=== PATIENT | female | born 1990 | race Caucasian/White ===

== ENCOUNTER 2018-11-28 13:14 | Day surgery (SDC) | payer SELFPAY ==
[2018-11-28 15:07] VITALS: BMI 33.2
[2018-11-28] MEDS ORDERED: hydrALAZINE 20 MG/ML VIAL SLOW IVP PRN (16:23)
--- NOTE | 2018-11-28 17:08 | PDOC.FPROB ---
FMR OB H&P: HPI - History of Present Illness Chief Complaint: Vaginal discharge Indentification: 28 year old at 29.0 wks History of Present Illness: 28 year old at 29.0 wks with RENA 02/13/2019 presents with vaginal discharge. She denies LoF. She is having some abdominal cramping/pressure, but no contractions. She denies vaginal bleeding. Patient endorses movement. Patient states she felt something wet in her vaginal area. She described it as "gooey". After that initial incident, she has not felt anything since that time. Patient recently moved here from [place]. She has not established with PCP and has not been seen in 3 weeks. She states she plans to establish this week. 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 States last smoked cigarettes several months ago, prior to . Denies alcohol or drug use. FMR OB H&P: Medications - Current Home Medications: Medication Instructions Recorded Confirmed Type No Known 11/28/18 11/28/18 History Allergies/Adverse Reactions: Allergies Allergy/AdvReac Type Severity Reaction Status Date / Time Latex, Natural Rubber Allergy Verified 11/28/18 15:00 FMR OB H&P: ROS - Review of Systems General: denies: fever/chills, weight/appetite/sleep changes Eyes: denies: vision changes, double vision ENT: denies: nasal congestion, sore throat Cardiovascular: reports: other (Known heart murmur since childhood). denies: chest pain, palpitation, edema Gastrointestinal: reports: abdominal pain (Abdominal cramping/discomfort). denies: nausea, vomiting, diarrhea Genitourinary (Female): reports: vaginal discharge. denies: dysuria, vaginal pain, vaginal bleeding, contractions Musculoskeletal: denies: pain, stiffness Neurologic: denies: numbness, syncope Integumentary: denies: itching, lesions Hematologic/Lymphatic: denies: prolonged or excessive bleeding Psychological: reports: depression, anxiety FMR OB H&P: Vital Signs - Maternal Vital signs: BP 109/55 Pulse 82 Afebrile - Heart Tones Baseline: 135 Variability: moderate Acceleration: present Deceleration: absent Pillow contractions every: None; Reactive strip FMR OB H&P: Physical Exam - Physical Exam General: NAD, awake, alert and oriented HEENT: MMM, grossly normal vision, grossly normal hearing Heart: RRR, pulses present, no edema Deviation from normal: 2/6 systolic murmur General: CTAB, no respiratory distress Abdomen: soft, gravid, non-tender Musculoskeletal: pulses present, FROM in all four extremities Neurological: no tremor, no focal deficit Skin: no rash, capillary refill <2 seconds Lymphatic: no unusual bruising or bleeding, no purpura - Pelvic Exam Vulva: normal hair distribution, appropriate dana stage Cervix: no masses Deviation from normal: moderate amount of harris/white discharge on speculum exam SVE: Appeared closed on speculum exam FMR OB H&P: A/P - Problem List (1) Status: Acute Qualifiers: Weeks of gestation: 29 weeks Qualified Code(s): Z3A.29 - 29 weeks gestation of (2) Systolic murmur Status: Chronic Code(s): R01.1 - CARDIAC MURMUR, UNSPECIFIED (3) Vaginal discharge Status: Acute Code(s): N89.8 - OTHER SPECIFIED NONINFLAMMATORY DISORDERS OF VAGINA (4) Chlamydia Status: Acute Code(s): A74.9 - CHLAMYDIAL INFECTION, UNSPECIFIED (5) Asthma Status: Chronic Code(s): J45.909 - UNSPECIFIED ASTHMA, UNCOMPLICATED Qualifiers: Asthma severity: unspecified severity Asthma persistence: unspecified Asthma complication type: unspecified Qualified Code(s): J45.909 - Unspecified asthma, uncomplicated (6) Anxiety Status: Chronic Code(s): F41.9 - ANXIETY DISORDER, UNSPECIFIED (7) Depression Status: Chronic Code(s): F32.9 - MAJOR DEPRESSIVE DISORDER, SINGLE EPISODE, UNSPECIFIED Disposition: 28 year old at 29.0 wks with RENA 02/13/2019 presents with vaginal discharge sIUP, - 29 wks - OPC from [place]; no records for review - Patient states Rh negative, has not yet received rhogam shot - Information provided for TAMP and PNC for patient to establish early next week - Attempted to get 3T labs and type and screen on patient today. Patient was unable to stay due to her children. Discussed importance of close follow up in order to get labs, Tdap, and rhogam. She understood and states she will follow up Fri/ next week. Vaginal discharge - Recent diagnosis of chlamydia x2 weeks ago, s/p treatment - LEYDA today - GC/CT pending - VP3 negative - Speculum exam with moderate amount of harris/white thin discharge Chlamydia in - x2 weeks ago, s/p treatment - LEYDA today - GC/CT pending Migraine headaches - Was supposed to establish with Neurologist in [place] but never had the chance to do so - Not symptomatic currently Heart murmur - Systolic 2/6 on exam - Per patient, present since childhood - Endorses occasional shortness of breath on exertion, would get baseline labs at OB visit to include CMP, BNP - EKG outpatient for further evaluation Anxiety - Was prescribed zofran for anxiety, but she opted not to take it due to theoretical risks associated with fetus, to include pulmonary hypertension - Patient states well controlled currently Depression - See plan for anxiety - Patient denies any suicidal or homicidal thoughts/ideations Asthma - Recent exacerbation during - Albuterol PRN - No hemabate Tobacco use - States quit prior to Dispo: Plan to d/c home with return precautions. Provided info for TAMP and PNC. Patient would like to establish with myself going forward. I will personally call TAMP and PNC on Friday to ensure she gets follow up. Attempted to get labs today, but patient was unable to stay to get these done. Patient reports being Rh negative and has not received rhogam shot. Without type and screen, could not give injection. Advised to have her records from [place] sent over to TAMP/PNC and we can repeat labs Fri/ if we do not have those records available. Patient also due for Tdap. Patient understood importance of follow up, and she has agreed to call to schedule appt with one of two places on Friday. Discussion: Date/Time: 11/28/18 2229 This H&P was discussed with Dr. Red who agrees with the above documentation and plan. Signature: Julienne Gutierrez, DO PGY-3 Addendum - Attending - Attending Attestation Date/Time: 11/28/18 6521 I personally evaluated the patient and discussed the management with Dr. Gutierrez I agree with the History, Examination, Assessment and Plan documented above with any addition or exceptions noted below. vitals signs reviewed 109/55 82 afebrile
[2018-11-29] MEDS ORDERED: FLU VACC QS2019-20(6MOS UP)/PF 60 MCG/0.5 ML SYRINGE IM ONE (09:00)
[2018-11-29 21:36] LABS: Chlamydia by PCR DETECTED (NotDetected); GC by PCR Not Detected (NotDetected)
== END 2018-11-28 17:23 | disposition home or self-care (01) ==
LOC: L&D/OP 13:14
PROVIDERS: ATTEND Obstetrics & Gynecology
DX: O99.89 Other specified diseases and conditions complicating pregnancy, childbirth and the puerperium (principal); N89.8 Other specified noninflammatory disorders of vagina; R10.9 Unspecified abdominal pain; O98.813 Other maternal infectious and parasitic diseases complicating pregnancy, third trimester; O99.343 Other mental disorders complicating pregnancy, third trimester; F41.9 Anxiety disorder, unspecified; F32.9 Major depressive disorder, single episode, unspecified; O99.413 Diseases of the circulatory system complicating pregnancy, third trimester; R01.1 Cardiac murmur, unspecified; O99.513 Diseases of the respiratory system complicating pregnancy, third trimester; J45.909 Unspecified asthma, uncomplicated; Z3A.29 29 weeks gestation of pregnancy; Z87.891 Personal history of nicotine dependence; Z91.040 Latex allergy status; Z91.048 Other nonmedicinal substance allergy status
CPT/HCPCS: 87480; 87491; 87510; 87591; 87660

== ENCOUNTER 2019-01-28 20:25 | Day surgery (SDC) | payer OTHER ==
[2019-01-28 21:00] VITALS: BMI 38.4
--- NOTE | 2019-01-28 21:26 | PDOC.FPROB ---
FMR OB H&P: HPI - History of Present Illness Chief Complaint: swelling Indentification: 28 y/o @ 37.5 by LMP/17.6 wk sono History of Present Illness: Patient reports for the past 3 days she has been having swelling in her hands, feet, and face. She reports it is worse when she is on her feet and then improved when she has her feet elevated. She reports a few headaches resolved with tylenol. She denies ctx, LOF, vaginal bleeding, vision changes, RUQ pain. Reports some dyspea with exertion but no baseline SOB. Endorses movement. Primary Care Physician: Dr. Gutierrez - DAVID FMR OB H&P: Current - Care : 7 Para: [id number] Gestational age: 37w5d Due date: 02/13/19 Dating Criteria: LMP/17.6 wk sono Course/Complications: Chlamydia twice during s/p treatment, needs LEYDA in about 1-2 weeks Pinworms s/p albendazole - OB Labs Blood type: O RH: negative Antibody Screen: negative HIV: negative RPR: negative HepBsAg: negative Rubella: non-immune Quad screen: negative Urine drug screen: negative Gonorrhea: negative Chlamydia: positive (s/p tx with neg LEYDA and then positive again s/p treatment) 1 hour gtt: 137 A1c: 4.5 GBS: negative H&H: 10.5/29.4 FMR OB H&P: History - Past Medical History PMH: Pinworms Obesity - OB History OB History: 5 prior term 's, no complications 1 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 Remote hx of abnormal pap - Surgical History Sx History: Tonsillectomy/adenoidectomy - Social History Social History: Denies any tobacco, EtOH, or drug use during this Transferred care from [place] when she moved recently - Family History Family History: Paternal grandmother - DM, HTN FMR OB H&P: Medications - Current Home Medications: Medication Instructions Recorded Confirmed Type No Known 11/28/18 01/28/19 History Allergies/Adverse Reactions: Allergies Allergy/AdvReac Type Severity Reaction Status Date / Time Latex, Natural Rubber Allergy Mild Rash Verified 01/28/19 20:59 FMR OB H&P: ROS - Review of Systems General: denies: fever/chills, weight/appetite/sleep changes Eyes: denies: vision changes, double vision, scot[place] ENT: denies: rhinorrhea, sore throat Cardiovascular: reports: edema. denies: chest pain Respiratory: denies: cough, shortness of breath Gastrointestinal: denies: abdominal pain, nausea, vomiting Genitourinary (Female): denies: dysuria, vaginal discharge, vaginal bleeding, contractions Musculoskeletal: denies: pain, stiffness Neurologic: denies: numbness, weakness Integumentary: denies: itching, rash FMR OB H&P: Vital Signs - Maternal Vital signs: BP 108/57, HR 99, Temp 98.0, O2 sat 99% on RA - Heart Tones Baseline: 130 Variability: moderate Acceleration: present Deceleration: absent Category: category 1 [place] contractions every: rare FMR OB H&P: Physical Exam - Physical Exam General: NAD, awake, alert and oriented HEENT: normocephalic and atraumatic, EOMI, MMM, conjunctiva clear, grossly normal vision, grossly normal hearing Neck: supple, no LAD Heart: RRR, normal S1/S2, no murmurs/rubs/gallops, pulses present, other ( minimal pedal edema) General: CTAB, no respiratory distress, good air movement, no rales/rhonchi, no wheezing Abdomen: soft, gravid, non-tender Musculoskeletal: pulses present, FROM in all four extremities Neurological: cranial nerves II through XII intact, no focal deficit Skin: good tugor, capillary refill <2 seconds Lymphatic: no unusual bruising or bleeding, no purpura Psychiatric: intact recent and remote memory, good judgement and insight FMR OB H&P: A/P - Problem List (1) Swelling of lower extremity during in third trimester Status: Acute Code(s): O12.03 - GESTATIONAL EDEMA, THIRD TRIMESTER Comment: Pt with normal BP's while here and minimal extremity swelling Urine dip with 1+ protein -Gave pt reassurance -Gave pre-e precautions and labor precautions -Continue routine OB f/u with Dr. Gutierrez (2) Chlamydia Status: Acute Code(s): A74.9 - CHLAMYDIAL INFECTION, UNSPECIFIED Comment: Recent chlamydia that was treated -LEYDA at next office visit Disposition: d/c home Discussion: Date/Time: 01/28/192123 This H&P was discussed with Dr. Kim who agrees with the above documentation and plan. Signature: Nicol Galloway MD, PGY-3 Addendum - Attending - Attending Attestation Date/Time: 01/28/192114 I personally evaluated the patient and discussed the management with Dr. Galloway I agree with the History, Examination, Assessment and Plan documented above with any addition or exceptions noted below. Trace edema to BLE. Nonpitting. No evidence of anasarca. No concern for preE. BP WNL. Asymptomatic. Trace protein on POC UA. +FM. Reactive tracing. No decels. No contractions. No bleeding. Follow up with PCP next week. Ok to d/c to home. Rahul
[2019-01-28 22:10] LABS: Bilirubin Negative (Negative); Blood, Urine Negative (Negative); Clarity Turbid (Clear); Glucose, Urine (Dipstick) Normal (Negative); Leukocyte 500 Leu/uL (Negative); Nitrite Negative (Negative); Protein, Urine (Dipstick) 30 mg/dL (Neg-Trace); Urobilinogen Normal mg/dL (Less than 2)
== END 2019-01-28 22:31 | disposition home or self-care (01) ==
LOC: L&D/OP 20:25
PROVIDERS: ATTEND Student in an Organized Health Care Education/Training Program
DX: O12.03 Gestational edema, third trimester (principal); O98.813 Other maternal infectious and parasitic diseases complicating pregnancy, third trimester; A74.9 Chlamydial infection, unspecified; Z3A.37 37 weeks gestation of pregnancy; Z91.040 Latex allergy status
CPT/HCPCS: 81003; 99282

== ENCOUNTER 2019-02-08 18:00 | Inpatient (IN) | payer OTHER ==
[~2019-02-08 18:00] MED LIST: Bupivacaine PF 0.5% 30 ML VIAL ONE
[2019-02-09] MEDS ORDERED: hydrALAZINE 20 MG/ML VIAL SLOW IVP PRN (02:54)
[2019-02-09] MEDS ORDERED: Lidocaine 1% (PF) 30 ML VIAL SC PRN (02:55)
[2019-02-09] MEDS ORDERED: Promethazine HCl 25 MG/ML VIAL IM PRN ×2 (02:56→05:22)
[2019-02-09] MEDS ORDERED: Ondansetron PF 4 MG/2 ML Vial IVP PRN ×2 (02:56→05:22)
[2019-02-09] MEDS ORDERED: Misoprostol 100 MCG TAB VAG SCH (03:00)
[2019-02-09] MEDS: Lactated Ringer's 1,000 ML IV SCH ×2 (03:45→14:13)
--- NOTE | 2019-02-09 03:45 | PDOC.FPROB ---
FMR OB H&P: HPI - History of Present Illness Chief Complaint: eIOL Indentification: 28 year old at 39 wks by LMP/17.4 wk sono History of Present Illness: 28 year old at 39.3 wks by LMP/17.4 wk sono presents for eIOL. Patient endorses pelvic pain, intermittent contractions. Denies vaginal bleeding, vaginal discharge, LoF. Patient endorses good movement. Patient plans to give infant up for adoption. Adoptive family that was initially chosen backed out yesterday. Patient's adoption agency is in [place], but patient has privacy attorney here in [facility]. She plans to still go through with adoption and is in the process of choosing another family. Patient moved here from [place] during her third trimester. 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 Patient quit several months into . Denies alcohol or drug use during . FMR OB H&P: Medications - Current Home Medications: Medication Instructions Recorded Confirmed Type No Known 11/28/18 02/05/19 History Allergies/Adverse Reactions: Allergies Allergy/AdvReac Type Severity Reaction Status Date / Time Latex, Natural Rubber Allergy Mild Rash Verified 02/09/19 03:55 FMR OB H&P: ROS - Review of Systems General: reports: fatigue. denies: fever/chills ENT: reports: nasal congestion, rhinorrhea Cardiovascular: denies: chest pain, palpitation, edema Respiratory: reports: cough, congestion. denies: shortness of breath Gastrointestinal: denies: abdominal pain, nausea, vomiting Genitourinary (Female): reports: contractions, vaginal pressure. denies: dysuria, vaginal discharge, vaginal pain, vaginal bleeding Musculoskeletal: reports: pain. denies: tenderness Neurologic: denies: numbness, syncope, weakness Integumentary: denies: itching, rash, lesions Psychological: reports: depression, anxiety FMR OB H&P: Vital Signs - Maternal Vital signs: BP 117/58 Pulse 88 Afebrile - Heart Tones Baseline: 130 Variability: moderate Acceleration: present Deceleration: absent Category: category 1 [place] contractions every: q1-2 min w/ pit FMR OB H&P: Physical Exam - Physical Exam General: NAD, awake, alert and oriented HEENT: MMM, grossly normal vision, grossly normal hearing Deviation from normal: Clear rhinorrhea Heart: RRR, pulses present General: CTAB, no wheezing Abdomen: soft, gravid, non-tender Neurological: no tremor, no focal deficit Skin: no rash, capillary refill <2 seconds Lymphatic: no unusual bruising or bleeding, no purpura Psychiatric: intact recent and remote memory, good judgement and insight, normal mood and affect - Pelvic Exam SVE: 04/29/-3 ballotable Presentation: Cephalic FMR OB H&P: A/P - Problem List (1) Term Current Visit: Yes Status: Acute Code(s): Z34.90 - ENCNTR FOR SUPRVSN OF NORMAL , UNSP, UNSP TRIMESTER (2) Encounter for induction of labor Current Visit: Yes Status: Acute Code(s): Z34.90 - ENCNTR FOR SUPRVSN OF NORMAL , UNSP, UNSP TRIMESTER (3) Rh negative state in antepartum period Current Visit: Yes Status: Acute Code(s): O26.899 - OTH RELATED CONDITIONS, UNSPECIFIED TRIMESTER; Z67.91 - UNSPECIFIED BLOOD TYPE, RH NEGATIVE (4) Maternal obesity affecting , antepartum Current Visit: Yes Status: Acute Code(s): O99.210 - OBESITY COMPLICATING , UNSPECIFIED TRIMESTER (5) Rubella non-immune status, antepartum Current Visit: Yes Status: Acute Code(s): O99.89 - OTH DISEASES AND CONDITIONS COMPL PREG/CHLDBRTH; Z28.3 - UNDERIMMUNIZATION STATUS (6) Anxiety Current Visit: No Status: Chronic Code(s): F41.9 - ANXIETY DISORDER, UNSPECIFIED (7) Asthma Current Visit: No Status: Chronic Code(s): J45.909 - UNSPECIFIED ASTHMA, UNCOMPLICATED Qualifiers: Asthma severity: unspecified severity Asthma persistence: unspecified Asthma complication type: unspecified Qualified Code(s): J45.909 - Unspecified asthma, uncomplicated (8) Depression Current Visit: No Status: Chronic Code(s): F32.9 - MAJOR DEPRESSIVE DISORDER , SINGLE EPISODE, UNSPECIFIED Qualifiers: Trimester: third trimester Disposition: 28 year old at 39.3 wks by LMP/17.4 wk sono Encounter for term eIOL - Term at 39.3 wks - 3 on presentation - Category I strip - Will augment with pitocin - Growth scan w/ hadlock 76% at 35.6 wks - Desires epidural Rh neg - Rhogam given 12/22/2018 Late transfer of care - From [place] in - Plan to give infant up for adoption; adoption agency in [place] - Will consult CM Chlamydia in - s/p neg LEYDA Migraine headaches Rubella non-immune - MMR vaccine PP SAB x1 Grandmultip - High risk PPH - Will have meds available at bedside Maternal obesity - TSH and HgA1c WNL - 10 Ib weight gain in Asthma - Avoid hemabate PP Dispo: Admit to L&D. Augment labor with pitocin. Discussion: Date/Time: 02/09/19 5231 This H&P was discussed with Dr. Gutierrez who agrees with the above documentation and plan. Signature: Julienne Gutierrez DO PGY-3 Addendum - Attending - Attending Attestation Date/Time: 02/09/19 9413 I personally evaluated the patient and discussed the management with Dr. Gutierrez I agree with the History, Examination, Assessment and Plan documented above with any addition or exceptions noted below. 28 yo female at 39.3 wks admitted for eIOL. R/B/A discussed. Questions answered. Consents signed. Cephalic by sono. 8 lb fetus. Cat 1 tracing. Will start pitocin per protocol. Repeat exam as indicated. GBS negative. ABrayMD
[2019-02-09 03:54] VITALS: BMI 38.0
[2019-02-09] MEDS ORDERED: Butorphanol Tartrate 1 MG/ML VIAL SLOW IVP PRN (04:03)
[2019-02-09] MEDS ORDERED: Ibuprofen 800 MG TAB PO PRN (04:03)
[2019-02-09 04:53] LABS: Hemoglobin 10.6 g/dL (12.0-16.0); Mean Corpuscular HGB CONC 33.6 g/dL (32.0-36.0); Mean Corpuscular Hemoglobin 29.3 pg (27.0-31.0); Mean Corpuscular Volume 87.1 fL (78.0-98.0); Mean Platelet Volume 8.1 fL (7.4-10.4); Platelet Count 194 thou/uL (130-400); Red Blood Cell (RBC) Count 3.63 mill/uL (4.20-5.40); White Blood Cell (WBC) Count 14.6 thou/uL (4.8-10.8)
[2019-02-09] MEDS: NS w/ Oxytocin 10 units 500 ML IV SCH ×2 (05:10→17:54)
[2019-02-09] MEDS ORDERED: Fentanyl 4 mcg/Bup 0.1% Cadd 100 ML ONE ×3 (05:20→17:45)
[2019-02-09] MEDS ORDERED: ePHEDrine/0.9% NaCl/PF SYRINGE 50 mg/10 ml SLOW IVP PRN (05:22)
[2019-02-09] MEDS ORDERED: Lactated Ringer's 500 ML IV PRN (05:22)
[2019-02-09] MEDS ORDERED: Naloxone HCl 0.4 mg/ml Vial IVP PRN ×2 (05:22)
[2019-02-09] MEDS ORDERED: Acetaminophen 325 MG TAB PO PRN (05:22)
[2019-02-09] MEDS ORDERED: Communication Order-Pharmacy FS SCH (05:30)
[2019-02-09] MEDS ORDERED: Fentanyl 4 mcg/Bupivacaine 0.1% Cassette 100 ML EPIDURAL SCH (05:30)
[2019-02-09] MEDS ORDERED: Fentanyl 100 MCG/2 ML VIAL ONE (05:33)
[2019-02-09 05:35] LABS: HBSAg Index 0.18 S/CO (0-0.99); Hep B Surf Ag Non-Reactive S/CO (NonReactive); Syphilis Antibody Nonreactive (Nonreactive); Syphilis Antibody Index 0.03 S/CO (<1.00 Non-Reactive)
--- NOTE | 2019-02-09 06:10 | PDOC.LDPN ---
Labor & Delivery Progress Note - Subjective Subjective: comfortable - Objective Vital signs reviewed and normal: yes General: NAD, resting Uterine fundus: non tender SVE: by nurse at 5:45 Dilation: 3 Effacement: 50% Station: -3 FHT: category 1, variability present [place] contractions every: q1-2 min - Assessment (1) Term Code(s): Z34.90 - ENCNTR FOR SUPRVSN OF NORMAL , UNSP, UNSP TRIMESTER Current Visit: Yes Status: Acute (2) Encounter for induction of labor Code(s): Z34.90 - ENCNTR FOR SUPRVSN OF NORMAL , UNSP, UNSP TRIMESTER Current Visit: Yes Status: Acute (3) Rh negative state in antepartum period Code(s): O26.899 - OTH RELATED CONDITIONS, UNSPECIFIED TRIMESTER; Z67.91 - UNSPECIFIED BLOOD TYPE, RH NEGATIVE Current Visit: Yes Status: Acute (4) Maternal obesity affecting , antepartum Code(s): O99.210 - OBESITY COMPLICATING , UNSPECIFIED TRIMESTER Current Visit: Yes Status: Acute (5) Rubella non-immune status, antepartum Code(s): O99.89 - OTH DISEASES AND CONDITIONS COMPL PREG/CHLDBRTH; Z28.3 - UNDERIMMUNIZATION STATUS Current Visit: Yes Status: Acute (6) Anxiety Code(s): F41.9 - ANXIETY DISORDER, UNSPECIFIED Current Visit: No Status: Chronic (7) Asthma Code(s): J45.909 - UNSPECIFIED ASTHMA, UNCOMPLICATED Current Visit: No Status: Chronic Qualifiers: Asthma severity: unspecified severity Asthma persistence: unspecified Asthma complication type: unspecified Qualified Code(s): J45.909 - Unspecified asthma, uncomplicated (8) Depression Code(s): F32.9 - MAJOR DEPRESSIVE DISORDER, SINGLE EPISODE, UNSPECIFIED Current Visit: No Status: Chronic Qualifiers: Trimester: third trimester Plan: continue plan of care, labor augmentation, pitocin for augmentation -: Continue current plan of care. Pitocin for augmentation. Will reassess in 2 hours. Patient with epidural in place. Addendum - Attending - Attending Attestation Date/Time: 02/09/19 9949 I personally evaluated the patient and discussed the management with Dr. Gutierrez I agree with the History, Examination, Assessment and Plan documented above with any addition or exceptions noted below. Unchanged. Will continue with current plan. Repeat exam as indicated. Cat 1 tracing. Requesting epidural. Rahul
[2019-02-09] MEDS: diphenhydrAMINE 50 MG/ML VIAL IVP PRN ×3 (07:54→22:10)
--- NOTE | 2019-02-09 08:06 | PDOC.LDPN ---
Labor & Delivery Progress Note - Subjective Subjective: comfortable, no concerns - Objective Vital signs reviewed and normal: yes (BP 113/58, HR 76) General: NAD, resting Uterine fundus: non tender SVE: 50/-2 Dilation: 3 Effacement: 50% Station: -2 FHT: category 1, acceleration absent, variability present (minimal variability) [place] contractions every: 3 min Other exam findings: pitocin at 10 mU/min Plan: continue plan of care, pitocin for augmentation -: continue expectant mgmt epidural in place benadryl for itching prn Addendum - Attending - Attending Attestation Date/Time: 02/09/19 2834 I personally evaluated the patient and discussed the management with the team. I agree with the History, Examination, Assessment and Plan documented above with any addition or exceptions noted below.
--- NOTE | 2019-02-09 12:10 | PDOC.LDPN ---
Labor & Delivery Progress Note - Subjective Subjective: comfortable, no concerns - Objective Vital signs reviewed and normal: yes General: NAD, resting Uterine fundus: non tender SVE: /-2 Dilation: 4 Effacement: 90% Station: -2 FHT: category 1, variability present [place] contractions every: 3-4 min Plan: continue plan of care, pitocin for augmentation -: pit at 16 continue expectant mgmt Addendum - Attending - Attending Attestation Date/Time: 02/09/19 0184 I personally evaluated the patient and discussed the management with Dr. Diop. I agree with the History, Examination, Assessment and Plan documented above with any addition or exceptions noted below.
--- NOTE | 2019-02-09 15:04 | PDOC.BPN ---
<Nessa Diop - Last Filed: 02/09/19 15:03> - Brief Progress Note Labor & Delivery Progress Note - Subjective Subjective: comfortable, no concerns, epidural in place - Objective Vital signs reviewed and normal: yes General: NAD, resting Uterine fundus: non tender SVE: 5/80/-2 Dilation: 5 Effacement: 80% Station: -2 FHT: category 1, variability present [place] contractions every: 3-4 min Plan: continue plan of care, pitocin for augmentation -: pit at 20 continue expectant mgmt fetus still ballotable therefore, will wait to AROM. Risks and benefits of ROM explained to pt. <Stefan Read - Last Filed: 02/09/19 16:24> Addendum - Attending - Attending Attestation Date/Time: 02/09/19 5902 I personally evaluated the patient and discussed the management with Dr. Diop. I agree with the History, Examination, Assessment and Plan documented above with any addition or exceptions noted below.
--- NOTE | 2019-02-09 16:45 | PDOC.LDPN ---
Labor & Delivery Progress Note - Objective Vital signs reviewed and normal: yes General: NAD, resting Dilation: 6/70/-2, ballotable (head moves away and does not return quickly) FHT: category 1, variability present (no decels, + accels) Plan: continue plan of care (explained risks of rupture and that I do not feel safe at this time. Recheck in 2 hours. Reposition as well.)
--- NOTE | 2019-02-09 18:50 | PDOC.LDPN ---
Labor & Delivery Progress Note - Subjective Subjective: comfortable, other (Non-painful contractions, epidural in place) - Objective Vital signs reviewed and normal: yes General: NAD, resting Uterine fundus: non tender Effacement: 75% Station: -2 FHT: category 1 [place] contractions every: q3-4 mins Other exam findings: ballotable Procedures: Pitocin 16 - Assessment (1) Encounter for induction of labor Code(s): Z34.90 - ENCNTR FOR SUPRVSN OF NORMAL , UNSP, UNSP TRIMESTER Current Visit: Yes Status: Acute (2) Term Code(s): Z34.90 - ENCNTR FOR SUPRVSN OF NORMAL , UNSP, UNSP TRIMESTER Current Visit: Yes Status: Acute (3) Third trimester Code(s): Z34.93 - ENCNTR FOR SUPRVSN OF NORMAL PREG, UNSP, THIRD TRIMESTER Current Visit: No Status: Acute (4) Anxiety Code(s): F41.9 - ANXIETY DISORDER, UNSPECIFIED Current Visit: No Status: Chronic (5) Depression Code(s): F32.9 - MAJOR DEPRESSIVE DISORDER, SINGLE EPISODE, UNSPECIFIED Current Visit: No Status: Chronic Qualifiers: Trimester: third trimester Plan: continue plan of care -: Pt is comfortable. FHT's 120, moderate variability. 6/70/-2. No change from 1630 check. Ballotable. Pitocin running at 16. Continue current plan. Addendum - Attending - Attending Attestation Date/Time: 02/09/191949 I personally evaluated the patient and discussed the management with Dr. Souza I agree with the History, Examination, Assessment and Plan documented above with any addition or exceptions noted below. Patient unchanged largely all afternoon. Fetus not well engaged. During most resent SVE, contraction started. Membranes noted to thin and subsequently ruptured. Clear fluid. Ultrasound performed. No evidence of cord within range of os. Fetus now engaged. 7 cm. TrevonMD
--- NOTE | 2019-02-09 19:50 | PDOC.LDPN ---
Labor & Delivery Progress Note - Subjective Subjective: comfortable, vaginal pressure, loss of fluid - Objective Vital signs reviewed and normal: yes General: NAD, resting Uterine fundus: palpable contractions Dilation: 6 cm Effacement: 75% FHT: category 1 [place] contractions every: q3-4 mins Procedures: AROM AROM: clear fluid FSE placed: yes - Assessment (1) Encounter for induction of labor Code(s): Z34.90 - ENCNTR FOR SUPRVSN OF NORMAL , UNSP, UNSP TRIMESTER Current Visit: Yes Status: Acute (2) Term Code(s): Z34.90 - ENCNTR FOR SUPRVSN OF NORMAL , UNSP, UNSP TRIMESTER Current Visit: Yes Status: Acute (3) Third trimester Code(s): Z34.93 - ENCNTR FOR SUPRVSN OF NORMAL PREG, UNSP, THIRD TRIMESTER Current Visit: No Status: Acute (4) Anxiety Code(s): F41.9 - ANXIETY DISORDER, UNSPECIFIED Current Visit: No Status: Chronic (5) Depression Code(s): F32.9 - MAJOR DEPRESSIVE DISORDER, SINGLE EPISODE, UNSPECIFIED Current Visit: No Status: Chronic Qualifiers: Trimester: third trimester Plan: continue plan of care -: Pt is doing well without any complaints. 7 cm/80%/-1. AROM with large amount of clear, non foul smelling fluid. FSE placed. FHT's 120's, category 1 strip. Cord cephalad. head engaged. Continue current care at this time, pitocin 16. Addendum - Attending - Attending Attestation Date/Time: 02/09/19 1063 I personally evaluated the patient and discussed the management with Dr. Souza I agree with the History, Examination, Assessment and Plan documented above with any addition or exceptions noted below. AROM during exam with contraction. Clear fluid. Repeat in 2 hours. Continue to rotate positions due to positioning. Rahul
[2019-02-09] MEDS ORDERED: diphenhydrAMINE 50 MG/ML VIAL IVP SCH (22:30)
[2019-02-10] MEDS ORDERED: Misoprostol 200 MCG TAB ONE (00:07)
[2019-02-10] MEDS ORDERED: Carboprost 250 MCG/ML AMP ONE (00:07)
[2019-02-10] MEDS ORDERED: Methylergonovine 0.2 MG/ML VIAL ONE (00:08)
[2019-02-10] MEDS: NS / Oxytocin 40 units/1000ml 1,000 ML IV PRN ×2 (00:40→02:10)
--- NOTE | 2019-02-10 00:58 | PDOC.OPDEL ---
OB Operative/Delivery Note Delivery Dr/Surgeon: Julio/Brenda/Harley Pre-Delivery Diagnosis: elective induction Procedure/Post Delivery Dx: spontaneous vaginal delivery Anesthesia: epidural - Additional Findings/Plan Placenta delivered: spontaneous Repaired Obstetrical Laceration: none Estimated blood loss: QBL 510 ml Compilations/Other Findings: This is 28 yo F @ 39.4 wks who delivered a viable F infant at 0028 on . Following an uneventful antepartum course, a vigorous female was delivered over an intact perineum in the JOSSE position. Anterior Shoulder and then remainder of the body delivered. Nuchal cord x 1. The head was held down and mouth and nares were bulb suctioned. Cord clamped after delayed cord clamping and cut and cord blood collected. Placenta delivered intact in the [place] presentation with a 3 vessel cord noted. Fundal massage was performed and the fundus was firm. The cervix and vagina were inspected and found to be free of lacerations. Infant went to nursery in good condition for routine care. Apgars were 7/9 at 1 & 5 minutes, respectively. Patient tolerated delivery well and went to after routine recovery/care. Post delivery plan: routine recovery
[2019-02-10] MEDS ORDERED: NS / Oxytocin 40 units/1000ml 1,000 ML IV SCH (02:49)
[2019-02-10] MEDS ORDERED: Ondansetron PF 4 MG/2 ML Vial IVP PRN (02:49)
[2019-02-10] MEDS ORDERED: Benzocaine-Menthol 82.5 ML CAN TOP PRN (02:49)
[2019-02-10] MEDS ORDERED: hydrALAZINE 20 MG/ML VIAL SLOW IVP PRN (02:49)
[2019-02-10] MEDS ORDERED: Bisacodyl 10 MG SUPP PR PRN (02:49)
[2019-02-10] MEDS ORDERED: Milk Of Magnesia 30 ML UDCUP PO PRN (02:49)
[2019-02-10] MEDS ORDERED: Preparation H Ointment 28 GM TUBE PR PRN (02:49)
[2019-02-10] MEDS ORDERED: diphenhydrAMINE 25 MG CAP PO PRN (02:49)
[2019-02-10] MEDS: Lactated Ringer's 1,000 ML IV SCH (03:50)
[2019-02-10] MEDS ORDERED: HYDROcodone/Acetaminophen 5/325 mg Tablet PO SCH ×2 (04:45→18:45)
[2019-02-10] MEDS ORDERED: Ketorolac Tromethamine 30 MG/ML VIAL IVP SCH (07:30)
[2019-02-10] MEDS: Docusate Calcium (SURFAK) 240 MG CAP PO SCH ×2 (08:03→21:04)
[2019-02-10] MEDS: Prenatal Vitamin 1 TAB PO SCH (08:03)
[2019-02-10] MEDS: Ferrous Sulfate 325 MG TAB PO SCH ×2 (08:05→19:47)
[2019-02-10] MEDS ORDERED: Adacel (T-DAP) 0.5 ML SYRINGE IM ONE (09:00)
[2019-02-10] MEDS ORDERED: diphenhydrAMINE 50 MG/ML VIAL IVP SCH (10:25)
[2019-02-10] MEDS ORDERED: Ibuprofen 800 MG TAB PO SCH (11:00)
[2019-02-10] MEDS ORDERED: Ketorolac Tromethamine 30 MG/ML VIAL IVP PRN (12:18)
[2019-02-10] MEDS ORDERED: Acetaminophen 500 MG TAB PO SCH (12:30)
[2019-02-10] MEDS ORDERED: Sodium Chloride 0.9% 10 ML ONE ×2 (12:42→14:43)
[2019-02-10] MEDS: Oxymetazoline HCl 0.05% (30 ML BOT) NS SCH ×2 (12:44→21:05)
[2019-02-10] MEDS: Ketorolac Tromethamine 10 MG TAB PO PRN ×2 (14:56→21:05)
[2019-02-11] MEDS: Ketorolac Tromethamine 10 MG TAB PO PRN (04:30)
[2019-02-11] MEDS ORDERED: HYDROcodone/Acetaminophen 5/325 mg Tablet PO PRN (07:00)
--- NOTE | 2019-02-11 07:46 | PDOC.PP ---
Post Progress Note Post Day #: 1 Subjective: Patient still with abdominal cramping PP. Lochia like that of a period. Patient with concerns regarding adoptive parents. She is nervous because they are first time parents and she is still struggling with giving infant up for adoption. Had lengthy 45+ min discussion with patient and nursery nurse. Reassured patient that they would not let infant go home with adoptive parents unless they felt comfortable with their ability to care for infant going forward. PO intake tolerated: yes Flatus: yes Ambulation: yes Vital Signs (12 hours) Temp Pulse Resp BP Pulse Ox 02/11/19 04:25 98 F 76 18 98/47 L 96 02/11/19 01:04 84 16 98 02/11/19 00:00 98.2 F 83 18 112/54 L 97 02/10/19 20:10 97.9 F 67 18 108/55 L 98 Weight Weight 94.347 kg - Physical Examination General: NAD Cardiovascular: RRR Respiratory: clear to auscultation bilaterally, non-labored breathing Abdominal: + bowel sounds, lochia (minimal), no distention, appropriately TTP Fundus firm & at: below umbilicus Skin: no rash Neurological: no gross focal deficits Result Diagrams: 02/09/19 04:39 Additional Labs: Post Labs Blood Type O NEGATIVE 02/09/19 05:13 Hep Bs Antigen Non-Reactive S/CO (NonReactive) 02/09/19 04:39 (1) Rh negative state in antepartum period Code(s): O26.899 - OTH RELATED CONDITIONS, UNSPECIFIED TRIMESTER; Z67.91 - UNSPECIFIED BLOOD TYPE, RH NEGATIVE Status: Acute (2) Maternal obesity affecting , antepartum Code(s): O99.210 - OBESITY COMPLICATING , UNSPECIFIED TRIMESTER Status: Acute (3) Rubella non-immune status, antepartum Code(s): O99.89 - OTH DISEASES AND CONDITIONS COMPL PREG/CHLDBRTH; Z28.3 - UNDERIMMUNIZATION STATUS Status: Acute (4) Anxiety Code(s): F41.9 - ANXIETY DISORDER, UNSPECIFIED Status: Chronic (5) Asthma Code(s): J45.909 - UNSPECIFIED ASTHMA, UNCOMPLICATED Status: Chronic Qualifiers: Asthma severity: unspecified severity Asthma persistence: unspecified Asthma complication type: unspecified Qualified Code(s): J45.909 - Unspecified asthma, uncomplicated (6) Depression Code(s): F32.9 - MAJOR DEPRESSIVE DISORDER, SINGLE EPISODE, UNSPECIFIED Status : Chronic Qualifiers: Trimester: third trimester (7) Term delivered Code(s): O80 - ENCOUNTER FOR FULL-TERM UNCOMPLICATED DELIVERY Status: Acute - Assessment/Plan Routine PP care - Post PP day #1 - Pain control problematic thus far; discussed realistic expectations regarding pain. Patient's pain well controlled with toradol, but in between dosing still having significant pain. Patient has been given norco which helps, but discussed that she would not be able to go home with norco, and I would prefer to get her on a regimen she can go home on. Patient agreeable to trying ibuprofen + tylenol together. Discussed synergist effect. Will continue to monitor. - Lochia normal - Infant being given up for adoption. Adoptive family in from [place]. Encouraged mother to invite adoptive family in to help care for infant to get a better feel for how they will be as parents, since that is a big concern of hers. Mother agreeable and feeling more comfortable with the adoption after our discussion. Reassured mother that they would not send home without ensuring the adoptive family is capable of caring for and has the resources necessary to do so. She has not yet signed papers but plans to do so tomorrow. Rh negative - A+, mother received rhogam Asthma - Duoneb treatments, will make PRN - Afrin - Breathing appears improved - Will start on inhalers Chlamydia s/p neg LEYDA Dispo: D/c home tomorrow. Addendum - Attending - Attending Attestation Date/Time: 02/11/19 1321 I personally evaluated the patient and discussed the management with Dr. Gutierrez and team. I agree with the History, Examination, Assessment and Plan documented above with any addition or exceptions noted below.
[2019-02-11] MEDS: Prenatal Vitamin 1 TAB PO SCH (08:36)
[2019-02-11] MEDS: Docusate Calcium (SURFAK) 240 MG CAP PO SCH ×2 (08:36→20:54)
[2019-02-11] MEDS: Oxymetazoline HCl 0.05% (30 ML BOT) NS SCH (08:36)
[2019-02-11] MEDS: Ferrous Sulfate 325 MG TAB PO SCH ×2 (08:41→16:14)
[2019-02-11] MEDS ORDERED: Preparation H Ointment 57 gram tube TOP PRN (09:30)
[2019-02-11] MEDS: Acetaminophen 500 MG TAB PO SCH ×2 (11:21→19:00)
[2019-02-11] MEDS: Ibuprofen 800 MG TAB PO SCH ×3 (13:21→20:54)
[2019-02-12] MEDS: Acetaminophen 500 MG TAB PO SCH ×3 (04:30→13:52)
[2019-02-12] MEDS: Oxymetazoline HCl 0.05% (30 ML BOT) NS SCH ×2 (04:30→08:45)
[2019-02-12] MEDS: Ibuprofen 800 MG TAB PO SCH ×2 (05:33→13:52)
[2019-02-12] MEDS: Ferrous Sulfate 325 MG TAB PO SCH (07:59)
[2019-02-12 08:04] VITALS: BP 93/52; TEMP 98.5
[2019-02-12] MEDS: Docusate Calcium (SURFAK) 240 MG CAP PO SCH (08:45)
[2019-02-12] MEDS: Prenatal Vitamin 1 TAB PO SCH (08:45)
--- NOTE | 2019-02-12 08:54 | PDOC.PP ---
Post Progress Note Post Day #: 2 Subjective: Patient PP day #2 s/p . Patient doing well. No complications. Lochia less than period. Pain better tolerated. Not requiring opiate medications. PO intake tolerated: yes Flatus: yes Ambulation: yes Vital Signs (12 hours) Temp Pulse Resp BP Pulse Ox 02/12/19 07:21 98.5 F 68 16 93/52 L 97 02/11/19 22:27 94 18 97 Weight Weight 94.347 kg - Physical Examination General: NAD Cardiovascular: RRR Deviation from normal: 2/6 systolic murmur Respiratory: clear to auscultation bilaterally, non-labored breathing Abdominal: + bowel sounds, lochia (less than period), no distention, appropriately TTP Fundus firm & at: below umbilicus Skin: no rash Psychiatric: A&Ox3, normal affect Result Diagrams: 02/09/19 04:39 Additional Labs: Post Labs Blood Type O NEGATIVE 02/09/19 05:13 Hep Bs Antigen Non-Reactive S/CO (NonReactive) 02/09/19 04:39 (1) Rh negative state in antepartum period Code(s): O26.899 - OTH RELATED CONDITIONS, UNSPECIFIED TRIMESTER; Z67.91 - UNSPECIFIED BLOOD TYPE, RH NEGATIVE Status: Acute (2) Maternal obesity affecting , antepartum Code(s): O99.210 - OBESITY COMPLICATING , UNSPECIFIED TRIMESTER Status: Acute (3) Rubella non-immune status, antepartum Code(s): O99.89 - OTH DISEASES AND CONDITIONS COMPL PREG/CHLDBRTH; Z28.3 - UNDERIMMUNIZATION STATUS Status: Acute (4) Anxiety Code(s): F41.9 - ANXIETY DISORDER, UNSPECIFIED Status: Chronic (5) Asthma Code(s): J45.909 - UNSPECIFIED ASTHMA, UNCOMPLICATED Status: Chronic Qualifiers: Asthma severity: unspecified severity Asthma persistence: unspecified Asthma complication type: unspecified Qualified Code(s): J45.909 - Unspecified asthma, uncomplicated (6) Depression Code(s): F32.9 - MAJOR DEPRESSIVE DISORDER, SINGLE EPISODE, UNSPECIFIED Status : Chronic Qualifiers: Trimester: third trimester (7) Term delivered Code(s): O80 - ENCOUNTER FOR FULL-TERM UNCOMPLICATED DELIVERY Status: Acute - Assessment/Plan Routine PP care - Post PP day #2 - Pain control improved with tylenol/ibuprofen combo - Mother has decided against adoption. She is opting to keep the baby. She has limited resources. LATOYA is following very closely and trying to ensure she has resources prior to d/c home to assist with rent, infant care, etc. LATOYA has by cell phone number and will call me when they feel she has what she needs prior to discharge. Will hold off on d/c until I get a call from LATOYA. Rh negative - A+, mother received rhogam Asthma - Duoneb treatments PRN - Afrin - Breathing appears improved - D/c home with inhalers Chlamydia s/p neg LEYDA Dispo: Plan for d/c home today once resources in place. Addendum - Attending - Attending Attestation Date/Time: 02/12/19 1211 I personally evaluated the patient and discussed the management with the team. I agree with the History, Examination, Assessment and Plan documented above with any addition or exceptions noted below.
== END 2019-02-12 14:30 | disposition home or self-care (01) | DRG 807 ==
LOC: L&D 02-09 02:47 → 3SE 02-10 03:29
PROVIDERS: ADMIT Student in an Organized Health Care Education/Training Program; ATTEND Student in an Organized Health Care Education/Training Program
PROC: 10E0XZZ Delivery of Products of Conception, External Approach (ICD-10-PCS; principal; 2019-02-11)
PROC: 3E033VJ Introduction of Other Hormone into Peripheral Vein, Percutaneous Approach (ICD-10-PCS; 2019-02-11)
DX: O99.52 Diseases of the respiratory system complicating childbirth (principal); Z37.0 Single live birth; O99.344 Other mental disorders complicating childbirth; F41.9 Anxiety disorder, unspecified; Z3A.39 39 weeks gestation of pregnancy; O99.214 Obesity complicating childbirth; E66.9 Obesity, unspecified; J45.909 Unspecified asthma, uncomplicated; F32.9 Major depressive disorder, single episode, unspecified
CPT/HCPCS: 36415; 51702; 85027; 85461; 86780; 86850; 86900; 86901; 87340; 90384; 94640; 96372; J1200; J1885; J2210; J2405; J2590; J3010; J3490; J7620; Q0163; S0020

== ENCOUNTER 2019-02-28 01:56 | Emergency (ER) | payer OTHER ==
[2019-02-28 02:18] LABS: #Basophils 0.1 thou/uL (0.0-0.2); #Eosinphils 0.5 thou/uL (0.0-0.7); #Monocytes 0.9 thou/uL (0.11-0.59); #Neutrophils 9.4 thou/uL (1.40-6.50); %Basophils 0.8 % (0.0-1.0); %Eosinophils 3.3 % (0.0-10.0); %Monocytes 5.7 % (0.0-10.0); %Neutrophils 63.2 % (42.0-75.0); Hemoglobin 11.7 g/dL (12.0-16.0); Mean Corpuscular HGB CONC 32.8 g/dL (32.0-36.0); Mean Corpuscular Hemoglobin 28.1 pg (27.0-31.0); Mean Corpuscular Volume 85.5 fL (78.0-98.0); Mean Platelet Volume 7.2 fL (7.4-10.4); Platelet Count 329 thou/uL (130-400); RBC Distribution Width 13.3 % (11.5-14.5); Red Blood Cell (RBC) Count 4.19 mill/uL (4.20-5.40); White Blood Cell (WBC) Count 14.9 thou/uL (4.8-10.8)
[2019-02-28 02:25] LABS: PTT 27.6 SEC (22.9-36.1); Prothrombin Time 13.1 SEC (12.0-14.7)
[2019-02-28 02:27] LABS: Bilirubin Negative (Negative); Blood, Urine 1+ (Negative); Clarity Turbid (Clear); Glucose, Urine (Dipstick) Normal (Negative); Leukocyte 500 Leu/uL (Negative); Nitrite Negative (Negative); Protein, Urine (Dipstick) 30 mg/dL (Neg-Trace); Squamous Epithelial 0-3 HPF (0-3); Urobilinogen Normal mg/dL (Less than 2); WBC/HPF Greater than 50 HPF (0-3)
[2019-02-28 02:28] LABS: Bacteria/HPF 1+ HPF (None Seen)
[2019-02-28 02:38] LABS: ALT (SGPT) 13 U/L (8-55); AST (SGOT) 16 U/L (5-34); Acetaminophen Less than 6.0 mcg/mL (10.0-30.0); Albumin 3.8 g/dL (3.5-5.0); Alcohol 224 mg/dL (Less than 10); Alkaline Phosphatase 125 U/L (40-110); Anion Gap 18 mmol/L (10-20); BUN (Urea Nitrogen) 13 mg/dL (7.0-18.7); Bilirubin, Total 0.2 mg/dL (0.2-1.2); Calc. Creatinine Clearance 0 mL/min (70-130); Calcium 8.9 mg/dL (7.8-10.44); Carbon Dioxide 19 mmol/L (22-29); Chloride 104 mmol/L (98-107); Estimated GFR-MDRD Greater than 90; Globulin 2.9 g/dL (2.4-3.5); Glucose 103 mg/dL (70-105); Potassium 3.3 mmol/L (3.5-5.1); Protein, Total 6.7 g/dL (6.0-8.3); Salicylate Less than 8.0 mg/dL (15.0-30.0); Sodium 138 mmol/L (136-145)
[2019-02-28] MEDS ORDERED: Adacel (T-DAP) 0.5 ML SYRINGE ONE (02:44)
[2019-02-28] MEDS ORDERED: Ketorolac Tromethamine 30 MG/ML VIAL ONE (03:31)
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
[2019-02-28] MEDS ORDERED: Iopamidol-370 76% 500 ML 1 ML ONE (16:02)
== END 2019-02-28 04:36 | disposition home or self-care (01) ==
LOC: ERS 01:56
DX: S00.83XA Contusion of other part of head, initial encounter (principal); S30.810A Abrasion of lower back and pelvis, initial encounter; F41.9 Anxiety disorder, unspecified; F32.9 Major depressive disorder, single episode, unspecified; F17.210 Nicotine dependence, cigarettes, uncomplicated; Y04.0XXA Assault by unarmed brawl or fight, initial encounter
CPT/HCPCS: 70450; 71045; 71260; 72125; 72170; 74177; 80053; 80307; 81003; 81015; 85025; 85610; 85730; 86850; 86870; 86900; 86901; 90471; 90715; 96374; G0390; J1885; Q9967

== ENCOUNTER 2021-04-26 12:52 | Emergency (ER) | payer OTHER ==
[2021-04-26] MEDS ORDERED: Acetaminophen 500 MG TAB ONE (13:59)
== END 2021-04-26 14:15 | disposition home or self-care (01) ==
LOC: ERS 12:52
DX: M25.571 Pain in right ankle and joints of right foot (principal); M25.471 Effusion, right ankle; X50.9XXA Other and unspecified overexertion or strenuous movements or postures, initial encounter; Y92.69 Other specified industrial and construction area as the place of occurrence of the external cause; Y93.E9 Activity, other interior property and clothing maintenance; Z87.891 Personal history of nicotine dependence

== ENCOUNTER 2021-09-05 16:10 | Emergency (ER) | payer OTHER ==
[2021-09-05 17:23] LABS: #Eosinphils 0.1 thou/uL (0.0-0.7); #Lymphocytes 2.4 thou/uL (1.20-3.40); #Monocytes 0.7 thou/uL (0.11-0.59); #Neutrophils 2.4 thou/uL (1.40-6.50); %Basophils 0.4 % (0.0-1.0); %Eosinophils 1.3 % (0.0-10.0); %Lymphocytes 42.4 % (21.0-51.0); %Monocytes 12.7 % (0.0-10.0); %Neutrophils 43.1 % (42.0-75.0); Mean Corpuscular Hemoglobin 32.6 pg (27.0-31.0); Mean Corpuscular Volume 93.1 fL (78.0-98.0); Mean Platelet Volume 7.2 fL (7.4-10.4); Platelet Count 175 thou/uL (130-400); RBC Distribution Width 11.6 % (11.5-14.5); Red Blood Cell (RBC) Count 3.98 mill/uL (4.20-5.40); White Blood Cell (WBC) Count 5.6 thou/uL (4.8-10.8)
[2021-09-05 17:29] LABS: BHCG - Serum Negative (NEGATIVE); Pregs Control Background? CLEAR/WHITE (CLR/WHITE); Pregs Control Bar Appear? YES (CONTROL BAR)
[2021-09-05 17:45] LABS: ALT (SGPT) 24 U/L (8-55); AST (SGOT) 16 U/L (5-34); Albumin 3.7 g/dL (3.5-5.0); Alkaline Phosphatase 63 U/L (40-110); Anion Gap 12 mmol/L (10-20); BUN (Urea Nitrogen) 6 mg/dL (7.0-18.7); Bilirubin, Total 0.2 mg/dL (0.2-1.2); Calc. Creatinine Clearance 0 mL/min (70-130); Calcium 8.8 mg/dL (7.8-10.44); Carbon Dioxide 25 mmol/L (22-29); Chloride 104 mmol/L (98-107); Estimated GFR 121; Globulin 2.5 g/dL (2.4-3.5); Glucose 96 mg/dL (70-105); Protein, Total 6.2 g/dL (6.0-8.3); Sodium 138 mmol/L (136-145)
[2021-09-05 17:51] LABS: Potassium 2.9 mmol/L (3.5-5.1)
[2021-09-05 18:04] LABS: Pregnancy Test - Urine (BHCG) POSITIVE (Negative); Pregu Control Background? CLEAR/WHITE (CLR/WHITE); Pregu Control Bar Appear? YES (CONTROL BAR); Specific Gravity 1.041 (1.002-1.036)
[2021-09-05 18:06] LABS: Bacteria/HPF None Seen HPF (None Seen); Bilirubin Negative (Negative); Blood, Urine Trace (Negative); Calcium Oxalate Crystals Rare HPF (None Seen); Clarity Turbid (Clear); Glucose, Urine (Dipstick) Normal (Negative); Ketone, Urine Trace mg/dL (Negative); Leukocyte Negative Leu/uL (Negative); Nitrite Negative (Negative); Protein, Urine (Dipstick) 50 mg/dL (Neg-Trace); RBC/HPF None Seen HPF (0-3); Specific Gravity, Urine 1.041 (1.002-1.036); WBC/HPF 0-3 HPF (0-3)
[2021-09-05] MEDS ORDERED: NS 0.9% w/ 40 MEQ KCL 1,000 ML IV SCH (21:00)
[2021-09-05] MEDS ORDERED: Potassium Chloride 20 MEQ TAB ONE (21:35)
== END 2021-09-05 21:46 | disposition home or self-care (01) ==
LOC: ERS 16:10 → EEVIPCON 16:10 → ERS 21:46
DX: O98.511 Other viral diseases complicating pregnancy, first trimester (principal); U07.1 COVID-19; O20.9 Hemorrhage in early pregnancy, unspecified; Z3A.01 Less than 8 weeks gestation of pregnancy; Z87.891 Personal history of nicotine dependence
CPT/HCPCS: 36415; 76856; 80053; 81003; 81015; 81025; 84702; 84703; 85025; 86900; 86901; J3480; U0003; U0005

== ENCOUNTER 2021-11-14 16:28 | Emergency (ER) | payer OTHER | END 2021-11-14 17:49 | disposition left against medical advice (07) | LOC: ERS 16:28 | DX: Z53.21 Procedure and treatment not carried out due to patient leaving prior to being seen by health care provider (principal) ==

== ENCOUNTER 2021-11-14 18:44 | Emergency (ER) | payer OTHER | END 2021-11-14 21:08 | disposition left against medical advice (07) | LOC: ERS 18:44 | DX: Z53.21 Procedure and treatment not carried out due to patient leaving prior to being seen by health care provider (principal) ==

== ENCOUNTER 2021-11-24 18:00 | Emergency (ER) | payer OTHER ==
[2021-11-24] MEDS ORDERED: Bupivacaine 0.25% 10 ML VIAL ONE (18:40)
[2021-11-24] MEDS ORDERED: Lidocaine 1% PF 5 ML VIAL ONE (18:40)
[2021-11-24] MEDS ORDERED: HYDROcodone/Acetaminophen 7.5/325 mg Tablet ONE (19:24)
[2021-11-24] MEDS ORDERED: Lidocaine Viscous Sol 2% 15 ml UD Cup ONE (19:27)
== END 2021-11-24 19:37 | disposition home or self-care (01) ==
LOC: ERS 18:00
DX: K08.89 Other specified disorders of teeth and supporting structures (principal)
CPT/HCPCS: 64400; 96372; S0020

== ENCOUNTER 2022-05-02 16:12 | Day surgery (SDC) | payer OTHER ==
[~2022-05-02 16:12] MED LIST changes: -Bupivacaine PF 0.5% 30 ML VIAL ONE; +Iopamidol-370 76% 500 ML MDV (1 ML CHARGE) ONE
[2022-05-02 16:55] LABS: Bacteria/HPF None Seen HPF (None Seen); Bilirubin Negative (Negative); Blood, Urine 3+ (Negative); Clarity Clear (Clear); Glucose, Urine (Dipstick) Normal (Negative); Ketone, Urine Negative (Negative); Leukocyte Negative Leu/uL (Negative); Nitrite Negative (Negative); Protein, Urine (Dipstick) 30 mg/dL (Neg-Trace); RBC/HPF Greater than 50 HPF (0-3); Squamous Epithelial 0-3 HPF (0-3); Urobilinogen 6 mg/dL (Less than 2)
[2022-05-02 17:17] LABS: #Eosinphils 0.1 thou/uL (0.0-0.7); #Lymphocytes 1.2 thou/uL (1.20-3.40); #Monocytes 0.6 thou/uL (0.11-0.59); #Neutrophils 7.7 thou/uL (1.40-6.50); %Basophils 0.3 % (0.0-1.0); %Eosinophils 0.9 % (0.0-10.0); %Lymphocytes 12.9 % (21.0-51.0); %Monocytes 5.9 % (0.0-10.0); Hemoglobin 12.1 g/dL (12.0-16.0); Mean Corpuscular Hemoglobin 30.9 pg (27.0-31.0); Mean Corpuscular Volume 90.9 fl (78.0-98.0); Mean Platelet Volume 7.5 fL (7.4-10.4); Platelet Count 229 10x3/uL (130-400); RBC Distribution Width 13.7 % (11.5-14.5); Red Blood Cell (RBC) Count 3.92 mill/uL (4.20-5.40); White Blood Cell (WBC) Count 9.6 10x3/uL (4.8-10.8)
[2022-05-02 17:30] LABS: INR-International Normal Ratio 1.1; PTT 32.3 sec (22.9-36.1)
[2022-05-02 17:39] LABS: ALT (SGPT) 16 U/L (8-55); AST (SGOT) 13 U/L (5-34); Alkaline Phosphatase 78 U/L (40-110); Anion Gap 13 mmol/L (10-20); BUN (Urea Nitrogen) 11 mg/dL (7.0-18.7); Bilirubin, Total 0.3 mg/dL (0.2-1.2); Calc. Creatinine Clearance 0 mL/min (70-130); Calcium 9.3 mg/dL (7.8-10.44); Carbon Dioxide 22 mmol/L (22-29); Chloride 107 mmol/L (98-107); Estimated GFR 119; Globulin 2.9 g/dL (2.4-3.5); Glucose 122 mg/dL (70-105); Potassium 3.9 mmol/L (3.5-5.1); Protein, Total 6.9 g/dL (6.0-8.3); Sodium 138 mmol/L (136-145)
[2022-05-02] MEDS ORDERED: Acetaminophen 500 MG TAB ONE (18:24)
[2022-05-02 18:35] LABS: Pregnancy Test - Urine (BHCG) Negative (Negative)
[2022-05-02 18:36] LABS: Pregu Control Background? CLEAR/WHITE (CLR/WHITE); Pregu Control Bar Appear? YES (CONTROL BAR)
[2022-05-02 19:25] LABS: BHCG - Serum Negative (NEGATIVE); Pregs Control Background? CLEAR/WHITE (CLR/WHITE); Pregs Control Bar Appear? YES (CONTROL BAR)
[2022-05-02] MEDS ORDERED: Ketorolac Tromethamine 30 MG/ML VIAL ONE ×2 (19:46→21:06)
[2022-05-02 23:48] LABS: Chlam.trachomatis by PCR,Urine DETECTED (NotDetected); GC N.gonorrhoeae PCR,UrineVOID DETECTED (NotDetected)
[2022-05-03] MEDS ORDERED: Lidocaine 1% PF 5 ML VIAL ONE (11:09)
[2022-05-03] MEDS ORDERED: cefTRIAXone (ROCEPHIN) 500 MG VIAL ONE (11:09)
== END 2022-05-03 | disposition home or self-care (01) ==
LOC: ERS 16:12 → ER/OP 05-03 10:42
DX: R10.84 Generalized abdominal pain (principal); R93.89 Abnormal findings on diagnostic imaging of other specified body structures; K80.20 Calculus of gallbladder without cholecystitis without obstruction
CPT/HCPCS: 36415; 74177; 76856; 80053; 81003; 81015; 81025; 84703; 85025; 85610; 85730; 86850; 86870; 86900; 86901; 87491; 87591; 94760; 96374; 96376; J0696; J1885; Q9967

== ENCOUNTER 2022-06-07 08:06 | Observation (INO) | payer OTHER ==
[2022-06-07] MEDS ORDERED: Ondansetron PF 4 MG/2 ML Vial ONE ×3 (09:14→15:23)
[2022-06-07] MEDS ORDERED: Ketorolac Tromethamine 30 MG/ML VIAL ONE ×2 (09:14→13:49)
[2022-06-07 09:21] LABS: #Basophils 0.1 thou/uL (0.0-0.2); #Eosinphils 0.1 thou/uL (0.0-0.7); #Neutrophils 10.6 thou/uL (1.40-6.50); %Basophils 0.4 % (0.0-1.0); %Eosinophils 0.9 % (0.0-10.0); %Lymphocytes 20.4 % (21.0-51.0); %Monocytes 6.9 % (0.0-10.0); %Neutrophils 71.4 % (42.0-75.0); Hemoglobin 14.2 g/dL (12.0-16.0); Mean Corpuscular HGB CONC 33.6 g/dL (32.0-36.0); Mean Corpuscular Hemoglobin 29.1 pg (27.0-31.0); Mean Corpuscular Volume 86.4 fl (78.0-98.0); Mean Platelet Volume 7.5 fL (7.4-10.4); Platelet Count 261 10x3/uL (130-400); RBC Distribution Width 14.5 % (11.5-14.5); White Blood Cell (WBC) Count 14.9 10x3/uL (4.8-10.8)
[2022-06-07 09:40] LABS: ALT (SGPT) 22 U/L (8-55); AST (SGOT) 19 U/L (5-34); Albumin 4.5 g/dL (3.5-5.0); Alkaline Phosphatase 93 U/L (40-110); Anion Gap 17 mmol/L (10-20); BUN (Urea Nitrogen) 12 mg/dL (7.0-18.7); Bilirubin, Total 0.4 mg/dL (0.2-1.2); Calc. Creatinine Clearance 0 mL/min (70-130); Carbon Dioxide 20 mmol/L (22-29); Chloride 105 mmol/L (98-107); Estimated GFR 95; Globulin 3.3 g/dL (2.4-3.5); Glucose 105 mg/dL (70-105); Lipase 28 U/L (8-78); Potassium 3.6 mmol/L (3.5-5.1); Protein, Total 7.8 g/dL (6.0-8.3); Sodium 138 mmol/L (136-145)
[2022-06-07 09:41] LABS: BHCG - Serum Negative (NEGATIVE); Pregs Control Background? CLEAR/WHITE (CLR/WHITE); Pregs Control Bar Appear? YES (CONTROL BAR)
[2022-06-07] MEDS ORDERED: Morphine 4 MG/ML VIAL ONE (10:18)
[2022-06-07] MEDS ORDERED: Piperacillin/Tazobactam 3.375 GM VIAL ONE (10:18)
[2022-06-07] MEDS ORDERED: Calcium Carbonate 500 MG ChewTAB PO PRN ×2 (11:19→15:25)
[2022-06-07] MEDS ORDERED: Acetaminophen 325 MG TAB PO PRN ×2 (11:19→12:15)
[2022-06-07] MEDS ORDERED: Ondansetron ODT 4 MG TAB PO PRN (11:19)
[2022-06-07] MEDS ORDERED: Ondansetron PF 4 MG/2 ML Vial IVP PRN ×2 (11:19→15:25)
[2022-06-07] MEDS ORDERED: Acetaminophen 650 MG Suppository PR PRN ×2 (11:19→12:15)
[2022-06-07] MEDS ORDERED: Morphine 2 MG/ML VIAL SLOW IVP PRN (11:24)
[2022-06-07] MEDS ORDERED: hydrOXYzine 25 MG TAB PO PRN (11:58)
[2022-06-07 12:07] VITALS: BMI 33.6
[2022-06-07] MEDS ORDERED: Albuterol HFA (OR) 200 PUFF INH INH PRN (12:16)
[2022-06-07] MEDS: Lactated Ringer's 1,000 ML IV SCH ×2 (12:45→20:12)
[2022-06-07] MEDS ORDERED: fentaNYL PF 100 MCG/2 ML SYRINGE ONE ×3 (12:59→15:51)
[2022-06-07] MEDS ORDERED: Bupivacaine/Epinephrine 0.25% 30 ML VIAL ONE (13:07)
[2022-06-07] MEDS ORDERED: NEOSTIGMINE 3 MG/3 ML SYR 3 MG/3 ML SYRINGE ONE (13:49)
[2022-06-07] MEDS ORDERED: Rocuronium Bromide 10 MG/ML (10ML VIAL) ONE (13:49)
[2022-06-07] MEDS ORDERED: Glycopyrrolate 0.2 MG/ML 5 ML SYRINGE ONE (13:49)
[2022-06-07] MEDS ORDERED: PROPOFOL 200 MG/20 ML VIAL ONE (13:49)
[2022-06-07] MEDS ORDERED: Dexamethasone 20 MG/5 ML VIAL ONE (13:49)
[2022-06-07] MEDS ORDERED: Lidocaine 1% PF 5 ML VIAL ONE (13:49)
[2022-06-07] MEDS ORDERED: ePHEDrine Sulfate 50 MG/10 ML VIAL ONE (13:49)
[2022-06-07] MEDS ORDERED: Piperacillin/Tazobactam 3.375 GM in Sodium Chloride 0.9% 100 ML IVPB SCH ×2 (14:30→15:00)
[2022-06-07] MEDS ORDERED: Ondansetron HCl/PF 4 MG/2 ML Vial IVP PRN (15:07)
[2022-06-07] MEDS ORDERED: Promethazine HCl 25 MG/ML VIAL IM PRN ×2 (15:07→15:25)
[2022-06-07] MEDS ORDERED: hydrALAZINE 20 MG/ML VIAL SLOW IVP PRN (15:25)
[2022-06-07] MEDS ORDERED: Ipratropium/Albuterol 3 ML NEB NEB PRN (15:25)
[2022-06-07] MEDS ORDERED: Mag-Al 1200 mg/1200 mg/30 ML UDCUP PO PRN (15:25)
[2022-06-07] MEDS ORDERED: Nicotine 14 MG PATCH TD PRN (15:37)
[2022-06-07] MEDS ORDERED: guaiFENesin ER 600 MG TAB PO PRN (16:14)
[2022-06-07] MEDS ORDERED: fentaNYL 50 mcg/mL 1 mL Vial ONE (16:21)
[2022-06-07] MEDS: Ketorolac Tromethamine 30 MG/ML VIAL IVP PRN (17:04)
[2022-06-07] MEDS: Famotidine 20 MG TAB PO SCH (20:11)
[2022-06-07] MEDS: Famotidine/PF 20 mg/2ml Vial SLOW IVP SCH (20:12)
[2022-06-08 04:05] VITALS: TEMP 98.2
[2022-06-08] MEDS: Lactated Ringer's 1,000 ML IV SCH (05:37)
[2022-06-08] MEDS: Ketorolac Tromethamine 30 MG/ML VIAL IVP PRN (05:38)
[2022-06-08 07:30] LABS: #Lymphocytes 1.5 thou/uL (1.20-3.40); #Monocytes 0.6 thou/uL (0.11-0.59); #Neutrophils 10.6 thou/uL (1.40-6.50); %Eosinophils 0.2 % (0.0-10.0); %Lymphocytes 11.8 % (21.0-51.0); %Monocytes 4.6 % (0.0-10.0); %Neutrophils 83.4 % (42.0-75.0); Hemoglobin 11.8 g/dL (12.0-16.0); Mean Corpuscular HGB CONC 33.9 g/dL (32.0-36.0); Mean Corpuscular Hemoglobin 29.7 pg (27.0-31.0); Mean Corpuscular Volume 87.8 fl (78.0-98.0); Platelet Count 203 10x3/uL (130-400); RBC Distribution Width 14.2 % (11.5-14.5); Red Blood Cell (RBC) Count 3.96 mill/uL (4.20-5.40); White Blood Cell (WBC) Count 12.7 10x3/uL (4.8-10.8)
[2022-06-08 07:58] LABS: Bilirubin, Total Less than 0.2 mg/dL (0.2-1.2)
[2022-06-08 07:59] LABS: ALT (SGPT) 30 U/L (8-55); AST (SGOT) 26 U/L (5-34); Albumin 3.9 g/dL (3.5-5.0); Alkaline Phosphatase 74 U/L (40-110); Anion Gap 14 mmol/L (10-20); BUN (Urea Nitrogen) 8 mg/dL (7.0-18.7); Calc. Creatinine Clearance 134 mL/min (70-130); Calcium 9.3 mg/dL (7.8-10.44); Carbon Dioxide 22 mmol/L (22-29); Chloride 107 mmol/L (98-107); Estimated GFR 97; Globulin 2.7 g/dL (2.4-3.5); Glucose 138 mg/dL (70-105); Potassium 4.1 mmol/L (3.5-5.1); Protein, Total 6.6 g/dL (6.0-8.3); Sodium 139 mmol/L (136-145)
[2022-06-08] MEDS: Famotidine/PF 20 mg/2ml Vial SLOW IVP SCH (08:11)
[2022-06-08] MEDS: Famotidine 20 MG TAB PO SCH (08:12)
[2022-06-08] MEDS ORDERED: Sertraline 25 MG TAB PO SCH (09:00)
[2022-06-08 09:03] VITALS: BP 129/60
== END 2022-06-08 12:11 | disposition home or self-care (01) ==
LOC: ERS 08:06 → T4-B 12:03
PROVIDERS: ADMIT Family Medicine; ATTEND Family Medicine
PROC: 0FT44ZZ Resection of Gallbladder, Percutaneous Endoscopic Approach (ICD-10-PCS; principal; 2022-06-07)
DX: K80.12 Calculus of gallbladder with acute and chronic cholecystitis without obstruction (principal); K82.8 Other specified diseases of gallbladder; R00.1 Bradycardia, unspecified; F53.0 Postpartum depression; J45.20 Mild intermittent asthma, uncomplicated; F17.210 Nicotine dependence, cigarettes, uncomplicated; E66.9 Obesity, unspecified; Z68.33 Body mass index [BMI] 33.0-33.9, adult; Z79.899 Other long term (current) drug therapy
CPT/HCPCS: 36415; 36416; 71045; 76705; 80053; 83605; 83690; 84484; 84703; 85025; 87040; 88304; 93005; 96365; 96375; 96376; C1889; G0378; J1100; J1885; J2270; J2405; J2543; J2704; J3010; J7120; S0028

== ENCOUNTER 2022-10-01 09:14 | Emergency (ER) | payer OTHER ==
[2022-10-01] MEDS ORDERED: cefTRIAXone (ROCEPHIN) 500 MG VIAL ONE (09:53)
[2022-10-01] MEDS ORDERED: Lidocaine 1% MPF 2 ML VIAL ONE (09:54)
[2022-10-01 14:39] LABS: Chlam.trachomatis by PCR,Urine Not Detected (NotDetected); GC N.gonorrhoeae PCR,UrineVOID Not Detected (NotDetected)
== END 2022-10-01 10:31 | disposition home or self-care (01) ==
LOC: ERS 09:14
DX: N89.8 Other specified noninflammatory disorders of vagina (principal); F17.210 Nicotine dependence, cigarettes, uncomplicated; Z20.2 Contact with and (suspected) exposure to infections with a predominantly sexual mode of transmission
CPT/HCPCS: 87491; 87591; 96372; 99283; J0696

== ENCOUNTER 2022-10-14 16:57 | Emergency (ER) | payer OTHER ==
[2022-10-14 18:04] LABS: Bacteria/HPF 1+ HPF (None Seen); Bilirubin Negative (Negative); Blood, Urine 3+ (Negative); CAUTI Indications for Culture Pelvic or flank pain; Clarity Clear (Clear); Glucose, Urine (Dipstick) Normal (Negative); Ketone, Urine Negative (Negative); Leukocyte 75 Leu/uL (Negative); Nitrite Negative (Negative); Protein, Urine (Dipstick) 20 mg/dL (Neg-Trace); Specific Gravity, Urine 1.033 (1.002-1.036); Urobilinogen Normal mg/dL (Less than 2); pH, Urine 5.5 (5.0-9.0)
[2022-10-14 18:05] LABS: Urine Culture Reflex Yes Yes
[2022-10-14 18:10] LABS: Pregnancy Test - Urine (BHCG) POSITIVE (Negative); Pregu Control Background? CLEAR/WHITE (CLR/WHITE); Pregu Control Bar Appear? YES (CONTROL BAR); Specific Gravity 1.033 (1.002-1.036)
[2022-10-14 18:37] LABS: #Eosinphils 0.1 thou/uL (0.0-0.7); #Monocytes 0.7 thou/uL (0.11-0.59); %Basophils 0.3 % (0.0-1.0); %Eosinophils 1.2 % (0.0-10.0); %Lymphocytes 24.4 % (21.0-51.0); %Monocytes 7.7 % (0.0-10.0); %Neutrophils 66.2 % (42.0-75.0); Hematocrit 36.8 % (36.0-47.0); Hemoglobin 12.6 g/dL (12.0-16.0); Mean Corpuscular HGB CONC 34.2 g/dL (32.0-36.0); Mean Corpuscular Hemoglobin 30.9 pg (27.0-31.0); Mean Corpuscular Volume 90.2 fl (78.0-98.0); Mean Platelet Volume 9.9 fL (7.4-10.4); Platelet Count 238 10x3/uL (130-400); RBC Distribution Width 13.1 % (11.5-14.5); Red Blood Cell (RBC) Count 4.08 mill/uL (4.20-5.40); White Blood Cell (WBC) Count 9.1 10x3/uL (4.8-10.8)
[2022-10-14 18:57] LABS: Anion Gap 12 mmol/L (10-20); BUN (Urea Nitrogen) 11 mg/dL (7.0-18.7); Calc. Creatinine Clearance 0 mL/min (70-130); Calcium 9.3 mg/dL (7.8-10.44); Carbon Dioxide 20 mmol/L (22-29); Chloride 107 mmol/L (98-107); Estimated GFR 121; Glucose 78 mg/dL (70-105); Potassium 3.9 mmol/L (3.5-5.1); Sodium 135 mmol/L (136-145)
[2022-10-14 22:12] LABS: Chlamydia by PCR, Vaginal Swab Not Detected (NotDetected); GC by PCR, Vaginal Swab Not Detected (NotDetected)
== END 2022-10-14 21:39 | disposition home or self-care (01) ==
LOC: ERS 16:57
DX: O23.591 Infection of other part of genital tract in pregnancy, first trimester (principal); R82.71 Bacteriuria; F17.210 Nicotine dependence, cigarettes, uncomplicated; Z3A.01 Less than 8 weeks gestation of pregnancy
CPT/HCPCS: 36415; 76856; 80048; 81001; 81025; 84702; 85025; 86900; 86901; 87086; 87480; 87491; 87510; 87591; 87660; 90384; 96372

== ENCOUNTER 2023-02-01 15:16 | Emergency (ER) | payer SELFPAY ==
[2023-02-01] MEDS ORDERED: Ketorolac Tromethamine 30 MG/ML VIAL ONE (16:27)
[2023-02-01] MEDS ORDERED: Ondansetron PF 4 MG/2 ML Vial ONE (16:28)
[2023-02-01 16:58] LABS: #Monocytes 0.6 thou/uL (0.11-0.59); %Basophils 0.2 % (0.0-1.0); %Eosinophils 0.4 % (0.0-10.0); %Lymphocytes 28.3 % (21.0-51.0); %Monocytes 5.5 % (0.0-10.0); %Neutrophils 65.3 % (42.0-75.0); Hematocrit 36.8 % (36.0-47.0); Hemoglobin 12.6 g/dL (12.0-16.0); Mean Corpuscular HGB CONC 34.2 g/dL (32.0-36.0); Mean Corpuscular Hemoglobin 30.7 pg (27.0-31.0); Mean Corpuscular Volume 89.5 fl (78.0-98.0); Mean Platelet Volume 9.8 fL (7.4-10.4); Platelet Count 215 10x3/uL (130-400); RBC Distribution Width 12.2 % (11.5-14.5); Red Blood Cell (RBC) Count 4.11 mill/uL (4.20-5.40); White Blood Cell (WBC) Count 10.8 10x3/uL (4.8-10.8)
[2023-02-01 17:21] LABS: ALT (SGPT) 42 U/L (8-55); AST (SGOT) 24 U/L (5-34); Alkaline Phosphatase 99 U/L (40-110); Anion Gap 13 mmol/L (10-20); BUN (Urea Nitrogen) 9 mg/dL (7.0-18.7); Bilirubin, Total 0.3 mg/dL (0.2-1.2); Calc. Creatinine Clearance 0 mL/min (70-130); Calcium 8.5 mg/dL (7.8-10.44); Carbon Dioxide 21 mmol/L (22-29); Chloride 108 mmol/L (98-107); Estimated GFR 122; Globulin 2.3 g/dL (2.4-3.5); Glucose 95 mg/dL (70-105); Lipase 30 U/L (8-78); Potassium 3.9 mmol/L (3.5-5.1); Protein, Total 6.3 g/dL (6.0-8.3); Sodium 138 mmol/L (136-145)
[2023-02-01 17:30] LABS: Troponin I Less than 0.010 ng/mL (< 0.028)
== END 2023-02-01 18:34 | disposition home or self-care (01) ==
LOC: ERS 15:16
DX: S06.0X0A Concussion without loss of consciousness, initial encounter (principal); R07.89 Other chest pain; F17.210 Nicotine dependence, cigarettes, uncomplicated; W19.XXXA Unspecified fall, initial encounter
CPT/HCPCS: 36415; 70450; 71045; 80053; 83690; 84484; 85025; 96374; 96375; J1885; J2405

== ENCOUNTER 2023-03-05 14:21 | Emergency (ER) | payer OTHER, SELFPAY ==
[2023-03-05] MEDS ORDERED: Acetaminophen 500 MG TAB ONE (15:58)
== END 2023-03-05 16:05 | disposition home or self-care (01) ==
LOC: ERS 14:21
DX: K02.9 Dental caries, unspecified (principal); K04.7 Periapical abscess without sinus; F17.210 Nicotine dependence, cigarettes, uncomplicated
CPT/HCPCS: 99282

== ENCOUNTER 2023-08-03 07:44 | Emergency (ER) | payer MEDICAID, OTHER ==
[2023-08-03] MEDS ORDERED: Dicyclomine 20 MG TAB ONE (08:20)
[2023-08-03] MEDS ORDERED: Ondansetron ODT 4 MG TAB ONE (08:21)
[2023-08-03 08:54] LABS: #Basophils 0.03 10x3/uL (0.0-0.2); %Basophils 0.3 % (0.0-1.0); %Lymphocytes 24.5 % (21.0-51.0); %Neutrophils 67.6 % (42.0-75.0); Hematocrit 29.9 % (36.0-47.0); Hemoglobin 10.6 g/dL (12.0-16.0); Mean Corpuscular HGB CONC 35.5 g/dL (32.0-36.0); Mean Corpuscular Hemoglobin 32.7 pg (27.0-31.0); Mean Corpuscular Volume 92.3 fL (78.0-98.0); Mean Platelet Volume 10.1 fL (7.4-10.4); Platelet Count 163 10x3/uL (130-400); RBC Distribution Width 13.2 % (11.5-14.5); Red Blood Cell (RBC) Count 3.24 mill/uL (4.20-5.40)
[2023-08-03 09:24] LABS: ALT (SGPT) 13 U/L (8-55); AST (SGOT) 11 U/L (5-34); Albumin 2.7 g/dL (3.5-5.0); Alkaline Phosphatase 67 U/L (40-110); Anion Gap 13 mmol/L (10-20); BUN (Urea Nitrogen) 12 mg/dL (7.0-18.7); Bilirubin, Total 0.2 mg/dL (0.2-1.2); Calc. Creatinine Clearance 0 mL/min (70-130); Calcium 8.7 mg/dL (7.8-10.44); Carbon Dioxide 20 mmol/L (22-29); Chloride 108 mmol/L (98-107); Estimated GFR 124; Globulin 2.9 g/dL (2.4-3.5); Glucose 91 mg/dL (70-105); Lipase 23 U/L (8-78); Potassium 3.4 mmol/L (3.5-5.1); Protein, Total 5.6 g/dL (6.0-8.3); Sodium 138 mmol/L (136-145)
[2023-08-03 09:24] LABS: Bacteria/HPF None Seen HPF (None Seen); Bilirubin Negative (Negative); Blood, Urine Negative (Negative); CAUTI Indications for Culture Pregnancy; Clarity Clear (Clear); Glucose, Urine (Dipstick) Normal (Negative); Ketone, Urine Negative (Negative); Leukocyte 25 Leu/uL (Negative); Nitrite Negative (Negative); Protein, Urine (Dipstick) Negative (Neg-Trace); RBC/HPF 0-3 HPF (0-3); Specific Gravity, Urine 1.028 (1.002-1.036); Urobilinogen Normal mg/dL (Less than 2); WBC/HPF 0-3 HPF (0-3)
[2023-08-03 09:27] LABS: Urine Culture Reflex Yes Yes
== END 2023-08-03 10:01 | disposition home or self-care (01) ==
LOC: ERS 07:44
DX: O99.891 Other specified diseases and conditions complicating pregnancy (principal); R10.2 Pelvic and perineal pain; O99.332 Smoking (tobacco) complicating pregnancy, second trimester; F17.210 Nicotine dependence, cigarettes, uncomplicated; Z3A.22 22 weeks gestation of pregnancy
CPT/HCPCS: 36415; 76815; 80053; 81001; 83690; 84702; 85025; 87086; Q0162

== ENCOUNTER 2023-08-21 15:57 | Emergency (ER) | payer OTHER ==
[2023-08-21 16:57] LABS: #Basophils Less than 0.03 10x3/uL (0.0-0.2); %Basophils 0.2 % (0.0-1.0); %Eosinophils 0.6 % (0.0-10.0); %Lymphocytes 16.2 % (21.0-51.0); %Monocytes 5.8 % (0.0-10.0); %Neutrophils 76.4 % (42.0-75.0); Hematocrit 31.1 % (36.0-47.0); Hemoglobin 11.3 g/dL (12.0-16.0); Mean Corpuscular HGB CONC 36.3 g/dL (32.0-36.0); Mean Corpuscular Hemoglobin 33.3 pg (27.0-31.0); Mean Corpuscular Volume 91.7 fL (78.0-98.0); Mean Platelet Volume 10.1 fL (7.4-10.4); Platelet Count 173 10x3/uL (130-400); RBC Distribution Width 12.8 % (11.5-14.5); Red Blood Cell (RBC) Count 3.39 mill/uL (4.20-5.40)
[2023-08-21 17:09] LABS: Bacteria/HPF None Seen HPF (None Seen); Bilirubin Negative (Negative); Blood, Urine Negative (Negative); CAUTI Indications for Culture Pregnancy; Clarity Clear (Clear); Glucose, Urine (Dipstick) Normal (Negative); Ketone, Urine Negative (Negative); Leukocyte 250 Leu/uL (Negative); Nitrite Negative (Negative); Protein, Urine (Dipstick) 30 mg/dL (Neg-Trace); Specific Gravity, Urine 1.042 (1.002-1.036); Squamous Epithelial 0-3 HPF (0-3); Urobilinogen Normal mg/dL (Less than 2); WBC/HPF 21-50 HPF (0-3)
[2023-08-21 17:16] LABS: Urine Culture Reflex Yes Yes
[2023-08-21 17:17] LABS: ALT (SGPT) 20 U/L (8-55); AST (SGOT) 15 U/L (5-34); Alkaline Phosphatase 80 U/L (40-110); Anion Gap 14 mmol/L (10-20); BUN (Urea Nitrogen) 9 mg/dL (7.0-18.7); Bilirubin, Total 0.2 mg/dL (0.2-1.2); Calc. Creatinine Clearance 0 mL/min (70-130); Calcium 9.1 mg/dL (7.8-10.44); Carbon Dioxide 20 mmol/L (22-29); Chloride 107 mmol/L (98-107); Estimated GFR 127; Globulin 3.3 g/dL (2.4-3.5); Glucose 100 mg/dL (70-105); Potassium 3.6 mmol/L (3.5-5.1); Protein, Total 6.3 g/dL (6.0-8.3); Sodium 137 mmol/L (136-145)
[2023-08-21] MEDS ORDERED: Magnesium 2 GM/50 ML BAG (IN WATER) ONE (17:25)
[2023-08-21] MEDS ORDERED: Acetaminophen 500 MG TAB ONE (18:04)
== END 2023-08-21 18:29 | disposition short-term general hospital (02) ==
LOC: ERS 15:57
DX: O99.891 Other specified diseases and conditions complicating pregnancy (principal); R10.10 Upper abdominal pain, unspecified; R10.30 Lower abdominal pain, unspecified; Z3A.23 23 weeks gestation of pregnancy
CPT/HCPCS: 36415; 80053; 81001; 85025; 86900; 86901; 87086; J3475

== ENCOUNTER 2024-03-01 18:47 | Emergency (ER) | payer OTHER ==
[2024-03-01 19:15] LABS: Bacteria/HPF None Seen HPF (None Seen); Bilirubin Negative (Negative); Blood, Urine Negative (Negative); CAUTI Indications for Culture Pelvic or flank pain; Clarity Clear (Clear); Glucose, Urine (Dipstick) Normal (Negative); Ketone, Urine Negative (Negative); Leukocyte Negative Leu/uL (Negative); Nitrite Negative (Negative); Protein, Urine (Dipstick) Negative (Neg-Trace); RBC/HPF None Seen HPF (0-3); Specific Gravity, Urine 1.023 (1.002-1.036); Squamous Epithelial 0-3 HPF (0-3); Urobilinogen Normal mg/dL (Less than 2); WBC/HPF 0-3 HPF (0-3)
[2024-03-01 19:20] LABS: Urine Culture Reflex No No
[2024-03-01 19:47] LABS: #Basophils 0.03 10x3/uL (0.0-0.2); %Basophils 0.3 % (0.0-1.0); %Eosinophils 1.9 % (0.0-10.0); %Lymphocytes 22.5 % (21.0-51.0); %Monocytes 5.8 % (0.0-10.0); %Neutrophils 69.2 % (42.0-75.0); Hematocrit 37.3 % (36.0-47.0); Hemoglobin 12.2 g/dL (12.0-16.0); Mean Corpuscular HGB CONC 32.7 g/dL (32.0-36.0); Mean Corpuscular Hemoglobin 27.4 pg (27.0-31.0); Mean Corpuscular Volume 83.6 fL (78.0-98.0); Platelet Count 219 10x3/uL (130-400); RBC Distribution Width 14.9 % (11.5-14.5); Red Blood Cell (RBC) Count 4.46 mill/uL (4.20-5.40)
[2024-03-01] MEDS ORDERED: Ketorolac Tromethamine 30 MG (1 mL) VIAL ONE (20:05)
[2024-03-01 20:08] LABS: BHCG - Serum Negative (NEGATIVE); Pregs Control Background? CLEAR/WHITE (CLR/WHITE); Pregs Control Bar Appear? YES (CONTROL BAR)
[2024-03-01 20:30] LABS: ALT (SGPT) 27 U/L (8-55); AST (SGOT) 24 U/L (5-34); Albumin 3.8 g/dL (3.5-5.0); Alkaline Phosphatase 82 U/L (40-110); Anion Gap 15 mmol/L (10-20); BUN (Urea Nitrogen) 14 mg/dL (7.0-18.7); Bilirubin, Total 0.2 mg/dL (0.2-1.2); Calc. Creatinine Clearance 0 mL/min (70-130); Carbon Dioxide 21 mmol/L (22-29); Chloride 108 mmol/L (98-107); Estimated GFR 109; Globulin 3.3 g/dL (2.4-3.5); Glucose 93 mg/dL (70-105); Potassium 4.7 mmol/L (3.5-5.1); Protein, Total 7.1 g/dL (6.0-8.3); Sodium 139 mmol/L (136-145)
[2024-03-02 14:49] LABS: Chlamydia by PCR, Vaginal Swab DETECTED (NotDetected); GC by PCR, Vaginal Swab Not Detected (NotDetected)
== END 2024-03-01 21:45 | disposition home or self-care (01) ==
LOC: ERS 18:47
DX: R10.32 Left lower quadrant pain (principal)
CPT/HCPCS: 36415; 74177; 80053; 81001; 84703; 85025; 87480; 87491; 87510; 87591; 87660; 96374; J1885; Q9967

== ENCOUNTER 2024-12-24 16:29 | Emergency (ER) | payer OTHER, SELFPAY ==
[2024-12-24 18:11] LABS: Pregnancy Test - Urine (BHCG) Negative (Negative); Pregu Control Background? CLEAR/WHITE (CLR/WHITE); Pregu Control Bar Appear? YES (CONTROL BAR)
[2024-12-24 18:18] LABS: CAUTI Indications for Culture Dysuria,urgency,freq; Glucose, Urine (Dipstick) Normal (Negative); Protein, Urine (Dipstick) 10 mg/dL (Neg-Trace); RBC/HPF 0-3 HPF (0-3); Specific Gravity, Urine 1.036 (1.002-1.036)
[2024-12-24 18:22] LABS: Bacteria/HPF 1+ HPF (None Seen)
[2024-12-24 18:23] LABS: Leukocyte Trace (Negative); Urine Culture Reflex No No
[2024-12-24 23:25] LABS: GC by PCR, Vaginal Swab Not Detected (NotDetected)
== END 2024-12-24 19:07 | disposition left against medical advice (07) ==
LOC: ERS 16:29
DX: Z53.21 Procedure and treatment not carried out due to patient leaving prior to being seen by health care provider (principal)
CPT/HCPCS: 81001; 81025; 87480; 87510; 87591; 87660

== ENCOUNTER 2024-12-27 23:28 | Emergency (ER) | payer SELFPAY | END 2024-12-28 01:55 | disposition left against medical advice (07) | LOC: ERS 23:28 | DX: Z53.21 Procedure and treatment not carried out due to patient leaving prior to being seen by health care provider (principal) | CPT/HCPCS: 93005 ==